=== PATIENT | female | born 1995 | race African-American/Black ===

== ENCOUNTER 2016-11-10 14:10 | Emergency (ER) | payer OTHER ==
[~2016-11-10] VITALS: Ht 162.6 cm; Wt 63.5 kg
[~2016-11-10 14:10] MED LIST: ACET50TA PO; IBUP60TA PO; IBUP80TA PO; TYLENOL PO; VITAPRTA PO
[2016-11-10] MEDS ORDERED: NS 1,000 ML IV ONE (14:45)
[2016-11-10 15:19] LABS: BASO % 0.3 % (0.0-1.0); EOS # 0.2 K/mm3 (0.0-0.50); EOS % 3.7 % (0.0-3.0); LARGE UNSTAINED CELL # 0.1 K/mm3 (0.0-0.4); LARGE UNSTAINED CELL % 1.9 % (0.0-4.0); LYMPH % 22.4 % (24.0-44.0); MEAN CORPUSCULAR HEMOGLOBIN 30.6 pg (27.0-33.0); MEAN CORPUSCULAR HGB CONC 34.9 g/dl (32.0-36.5); MEAN CORPUSCULAR VOLUME 87.7 fl (80.0-96.0); MONO # 0.2 K/mm3 (0.0-0.8); MONO % 4.8 % (0.0-5.0); NEUTROPHILS # 3.1 K/mm3 (1.8-7.7); NEUTROPHILS % 66.9 % (36.0-66.0); PLATELET COUNT, AUTOMATED 226 k/mm3 (150-450); RED CELL DISTRIBUTION WIDTH 12.2 % (11.5-14.5); WHITE BLOOD COUNT 4.6 K/mm3 (4.0-10.0)
[2016-11-10 15:49] LABS: ALBUMIN 2.9 GM/DL (3.2-5.2); ALBUMIN/GLOBULIN RATIO 0.85 (1.00-1.93); ALKALINE PHOSPHATASE 76 U/L (45-117); ALT/SGPT 15 U/L (12-78); ANION GAP 7 MEQ/L (8-16); AST/SGOT 12 U/L (15-37); BILIRUBIN,DIRECT 0.1 MG/DL (0.0-0.2); BILIRUBIN,TOTAL 0.4 MG/DL (0.2-1.0); BLOOD UREA NITROGEN 6 MG/DL (7-18); CALCIUM LEVEL 8.8 MG/DL (8.5-10.1); CARBON DIOXIDE LEVEL 27 MEQ/L (21-32); CHLORIDE LEVEL 104 MEQ/L (98-107); CREATININE FOR GFR 0.62 MG/DL (0.55-1.02); GLOMERULAR FILTRATION RATE > 60.0 (>60); GLUCOSE, FASTING 92 MG/DL (70-105); POTASSIUM SERUM 3.7 MEQ/L (3.5-5.1); SODIUM LEVEL 138 MEQ/L (136-145); TOTAL PROTEIN 6.3 GM/DL (6.4-8.2)
[2016-11-10] MEDS ORDERED: METOCLOPRAMIDE INJ 10MG/2ML VIAL (J2765) IV ONE (16:00)
[2016-11-10] MEDS ORDERED: MORPHINE 2 MG/ML 1ML SYRINGE IV ONE (16:00)
--- NOTE | 2016-11-10 16:17 | REP ---
FIRST TRIMESTER ULTRASOUND: Real-time sonographic evaluation of the gravid uterus performed utilizing transabdominal technique. There is a single living intrauterine gestation. Estimated gestational age 10 weeks 5 days based on a crown rump length of 38 mm. EDC 06/03/2017. heart rate 152 beats per minute. There is no subchorionic hemorrhage. Cystic structure of the right ovary probably represents a corpus luteum measuring approximately 1.8 cm in diameter. There is no torsion of the right ovary with duplex Doppler evaluation. Signed by Paulino Conti MD 11/11/2016 01:22 P
--- NOTE | 2016-11-10 16:21 | REP ---
RIGHT LOWER QUADRANT ULTRASOUND: Real-time sonographic evaluation of the right lower quadrant performed. Appendix could not be visualized. I could not exclude appendicitis. Right ovary is visualized. A small cystic structure in the right ovary probably represents a corpus luteum, approximately 1.3 cm in diameter. There is no evidence of right ovarian torsion with blood flow seen in the right ovary with duplex Doppler evaluation. IMPRESSION: Appendix could not be visualized. The right ovary is visualized with complex cystic structure 1.3 cm in diameter, probably representing a corpus luteum. No torsion of the right ovary. Signed by Paulino Conti MD 11/11/2016 01:22 P
[2016-11-10 16:51] VITALS: BP 120/64
== END 2016-11-10 17:33 | disposition home or self-care (01) ==
LOC: M ED 16:08
DX: O34.81 Maternal care for other abnormalities of pelvic organs, first trimester (principal); Z3A.11 11 weeks gestation of pregnancy; N83.201 Unspecified ovarian cyst, right side; Z79.899 Other long term (current) drug therapy
CPT/HCPCS: 76705; 76801; 80048; 80076; 81001; 83690; 85025; 87086; 93976; 96361; 96374; 96375; 99283; J2765

== ENCOUNTER 2016-12-12 12:12 | Emergency (ER) | payer OTHER ==
[~2016-12-12] VITALS: Ht 162.6 cm; Wt 62.6 kg
[2016-12-12] MEDS ORDERED: ACETAMINOPHEN TAB 650MG DOSE (2X325MG) PO ONE (14:30)
--- NOTE | 2016-12-12 14:49 | REP ---
OB ULTRASOUND: Real-time sonographic evaluation of the gravid uterus is performed. There is a single living intrauterine gestation with an estimated gestational age of 15 weeks 2 days, EDC 06/03/2017. BPD 31 mm = 15 weeks 6 days, 72nd percentile. HC 114 mm = 15 weeks 4 days, 62nd percentile AC 92 mm = 15 weeks 3 days, 54th percentile. FL 16 mm = 14 weeks 6 days, 37th percentile HC/AC ratio 1.24, within normal range. Estimated weight 116 grams, 39th percentile. Cervic closed and measures 4.1 cm in length. heart rate 131 beats per minute. SEEN/GROSSLY UNREMARKABLE Lateral ventricles yes Posterior fossa no Upper lip no Four-chamber heart yes LVOT yes RVOT yes Stomach yes Cord insertion yes Three vessel cord yes Kidneys yes Bladder yes Spine yes position: Variable. Placenta: Posterior and grade 0 with no previa or abruption. Amniotic fluid: Within normal limits. Signed by Paulino Conti MD 12/12/2016 08:10 P
[2016-12-12 14:55] LABS: DIFF SLIDE NUMBER 236; MEAN CORPUSCULAR VOLUME 90.2 fl (80.0-96.0); PLATELET COUNT, AUTOMATED 181 k/mm3 (150-450); RED CELL DISTRIBUTION WIDTH 13.3 % (11.5-14.5); WHITE BLOOD COUNT 5.9 K/mm3 (4.0-10.0)
[2016-12-12 15:36] LABS: MEAN CORPUSCULAR HGB CONC 36.5 g/dl (32.0-36.5)
[2016-12-12 15:45] LABS: EOSINOPHILS 1 % (0-5)
[2016-12-12] MEDS ORDERED: FLAG500T PO (15:52)
[2016-12-12 15:58] VITALS: BP 115/62
[2016-12-12] MEDS ORDERED: metroNIDAZOLE (FLAGYL) 500 MG TAB PO ONE (16:00)
== END 2016-12-12 16:01 | disposition home or self-care (01) ==
LOC: M ED 13:00
DX: O9A.212 Injury, poisoning and certain other consequences of external causes complicating pregnancy, second trimester (principal); N76.0 Acute vaginitis; W10.8XXA Fall (on) (from) other stairs and steps, initial encounter; Y92.89 Other specified places as the place of occurrence of the external cause; Y93.89 Activity, other specified; Y99.8 Other external cause status; O98.212 Gonorrhea complicating pregnancy, second trimester; O99.612 Diseases of the digestive system complicating pregnancy, second trimester; K21.9 Gastro-esophageal reflux disease without esophagitis; Z3A.15 15 weeks gestation of pregnancy

== ENCOUNTER 2016-12-13 16:45 | Emergency (ER) | payer OTHER ==
[~2016-12-13] VITALS: Ht 162.6 cm; Wt 63.5 kg
[~2016-12-13 16:45] MED LIST changes: +FLAG500T PO
[2016-12-13] MEDS ORDERED: cefTRIAXone SOD 250 MG VIAL (J0696) IM ONE (17:45)
[2016-12-13] MEDS ORDERED: AZITHROMYCIN 250 MG TAB PO ONE (17:45)
[2016-12-13 18:34] VITALS: BP 112/76
== END 2016-12-13 18:35 | disposition home or self-care (01) ==
LOC: M ED 17:47
DX: A54.02 Gonococcal vulvovaginitis, unspecified (principal); Z79.2 Long term (current) use of antibiotics
CPT/HCPCS: 99282; J0696

== ENCOUNTER 2017-03-20 20:04 | Outpatient (CLI) | payer OTHER ==
[~2017-03-20] VITALS: Ht 162.6 cm; Wt 64.0 kg
[2017-03-20 20:14] VITALS: BP 120/71
[2017-03-20 22:46] VITALS: BP 127/60
== END 2017-03-20 22:45 | disposition home or self-care (01) ==
LOC: M LDO 20:04
PROVIDERS: ATTEND Student in an Organized Health Care Education/Training Program
DX: O99.89 Other specified diseases and conditions complicating pregnancy, childbirth and the puerperium (principal); Z3A.29 29 weeks gestation of pregnancy; N39.0 Urinary tract infection, site not specified; R10.30 Lower abdominal pain, unspecified; N89.9 Noninflammatory disorder of vagina, unspecified

== ENCOUNTER 2017-04-27 14:39 | Outpatient (CLI) | payer OTHER ==
[~2017-04-27] VITALS: Ht 162.6 cm; Wt 65.0 kg
[2017-04-27 14:57] VITALS: BP 106/55
--- NOTE | 2017-04-28 11:11 | HPE ---
DATE OF ADMISSION: 04/27/2017 This lady is 21-year-old 4, para 2, last menstrual period (LMP) 08/31/2016, estimated date of confinement (EDC) 06/04/2017 at 34 and 2 weeks of gestation with a history of uterine irritability. Her risk factors is she has short interval gestations delivered in 2014 and 2015. She complains of chronic back pain and had a recent history of gonorrhea positive, test of cure negative. PAST HISTORY: In 2015, at 39 weeks, spontaneous vaginal delivery, female, 7 pounds 10 ounces. In 2016, at 38 weeks, spontaneous vaginal delivery, male 6 pounds. LABORATORY: Labs show O+, HIV negative, hepatitis negative, rubella immune. Varicella immune. Pap normal. Urine negative. Gonorrhea was positive, test of cure was negative. Chlamydia was negative. 1-hour glucose 77. On examination, she is in no distress. Symphysis fundus height is 35, vertex occiput anterior (OA), posterior, closed, high. No vaginal bleeding or vaginal loss. fibronectin (FFN) was performed and was found to be negative. Her urine is 1.005, pH is 8, 2+ leukocytes. Her blood pressure is 106/55, respirations are 18, pulse is 106 and temperature is 97.8. She has a category one strip. The rest of the examination is unremarkable. She is normocephalic, atraumatic. Neck: Full range of motion. Pupils equal and reactive to light. Distal pulses are symmetric. No evidence of deep vein thrombosis (DVT), pulmonary embolism (PE) or superficial phlebitis. Chest is clear bilaterally to bases. No wheezes or rhonchi. No costovertebral angle tenderness. Nontender uterus. Four quadrant bowel sounds are noted. Appropriate category one strip. The rest of the examination is unremarkable. She has no rashes, lesions or pruritus. No arthralgia or myalgia. No complaints of cough, wheeze, shortness of breath or dyspnea on exertion. No chest pain. Not bleeding. Neurologic complete. No incontinence, urgency or frequency. No nausea, vomiting, diarrhea or constipation. No diabetic issues. ACCESS NURSE issues: She had gonorrhea with test of cure negative. Past medical and surgical history unremarkable. Family history noncontributory. No tobacco or alcohol. Had no drug abuse. . There is no domestic violence. In summary, we have a 34 weeker with uterine irritability, negative FFN, counseled regarding precautions. Has an appointment on 05/01/2017, and she was discharged undelivered. Copy To: [facility]
== END 2017-04-27 16:15 | disposition home or self-care (01) ==
LOC: M LDO 14:39
PROVIDERS: ATTEND Obstetrics & Gynecology
DX: O62.0 Primary inadequate contractions (principal); Z3A.34 34 weeks gestation of pregnancy

== ENCOUNTER 2017-05-10 10:58 | Outpatient (CLI) | payer OTHER ==
[~2017-05-10] VITALS: Ht 162.6 cm; Wt 68.8 kg
--- NOTE | 2017-05-10 12:50 | HPE ---
DATE OF ADMISSION: 05/10/2017 HISTORY: This lady is a 21-year-old, 4, para 2, last menstrual period (LMP) 08/31/2016, estimated date of confinement (EDC) 06/04/2017, at 36 and 4 weeks of gestation with pelvic pressure. Her past history, March 2015 spontaneous delivery female at 39 weeks 7 pounds 1 ounce, January 2016 spontaneous vaginal delivery at 38 weeks male 6 pounds 0 ounces. Labs show O+, HIV negative, hepatitis negative, RPR negative, rubella immune. Varicella immune. Pap normal. Urine negative. Gonorrhea was positive. Test of cure was negative. Chlamydia was negative. Glucose was 177 and she is sickle negative. On examination, no acute distress. Symphysis fundus height is 36, vertex OA. Cervix is closed, high posterior, not dilated. No vaginal loss or bleeding. Four quadrant bowel sounds are noted. Urine is 1.001, pH 7, negative. Blood pressure 131/67, respirations 18, pulse 113 and temperature is 98.4. In summary, we have a 36 and 4 week gestation with pelvic pressure secondary to positional effect. She has had this on going since early . The rest examination unremarkable. Normocephalic, atraumatic. Neck full range of motions. Pupils equal and reactive to light. Distal pulses are symmetric. No evidence of deep venous thrombosis (DVT), pulmonary embolism (PE) or superficial phlebitis. Chest is clear bilaterally to bases. No wheezes or rhonchi. No costovertebral angle (CVA) tenderness. Abdomen soft. Four quadrant bowel sounds are noted and uterus itself is not tender. Category 1 strip. No rashes, lesions or pruritus. No arthralgia or myalgia. No complaints of cough, wheezes, shortness of breath or dyspnea on exertion. No allergies. No chest pain. No bleeding. Neuro complete. No incontinency or frequency. No nausea, vomiting, diarrhea or constipation. No diabetic issues. COLLECTION ADVISOR issues: Positive for GC, negative test of cure. Past medical and surgical history unremarkable. Family history noncontributory. She does not smoke or drink, abuse drugs. She is and there is no domestic violence. We discussed with her precautions regarding pelvic pressure, when to call the provider, kick chart, premature rupture of membranes, bleeding. The patient expressed understanding of same. Was discharged undelivered. Has an appointment followup 05/22/2017. She had already had her GBS done, although it is not presently in the chart.
== END 2017-05-10 12:28 | disposition home or self-care (01) ==
LOC: M LDO 10:58
PROVIDERS: ATTEND Obstetrics & Gynecology
DX: O26.893 Other specified pregnancy related conditions, third trimester (principal); Z3A.36 36 weeks gestation of pregnancy; R10.2 Pelvic and perineal pain

== ENCOUNTER 2017-05-31 08:39 | Inpatient (IN) | payer OTHER ==
[~2017-05-31] VITALS: Ht 162.6 cm; Wt 69.5 kg
[2017-05-31] MEDS ORDERED: RHOGAM 300 MCG (1500 IU) INJ (J2790) IM SCH (09:00)
[2017-05-31] MEDS ORDERED: MEASLES,MUMPS,RUBELLA VACCINE INJ (MMR-II) (90707) SC SCH (09:00)
[2017-05-31 09:14] VITALS: BP 102/57
[2017-05-31] MEDS ORDERED: PENICILLIN G POTASSIUM IV 5 MU in D5W MINI-BAG PLUS 100 ML IV STA ×2 (09:49→10:33)
[2017-05-31] MEDS ORDERED: LR 1,000 ML IV SCH ×2 (09:49→16:15)
[2017-05-31 10:34] LABS: MEAN CORPUSCULAR HEMOGLOBIN 29.9 pg (27.0-33.0); MEAN CORPUSCULAR HGB CONC 34.1 g/dl (32.0-36.5); MEAN CORPUSCULAR VOLUME 87.8 fl (80.0-96.0); RED CELL DISTRIBUTION WIDTH 13.8 % (11.5-14.5); WHITE BLOOD COUNT 7.2 10^3/uL (4.0-10.0)
[2017-05-31 11:18] VITALS: BP 124/76
[2017-05-31] MEDS ORDERED: OXYTOCIN 30 UNITS IN 0.9% NaCl 500ML IV BAG (J2590) As Ordered ONE (13:58)
[2017-05-31] MEDS ORDERED: PENICILLIN G POTASSIUM IV 2.5 MU in D5W 100 ML IV SCH ×2 (14:00→15:00)
[2017-05-31 14:13] VITALS: BP 119/61
[2017-05-31 14:27] VITALS: BP 127/67
[2017-05-31] MEDS ORDERED: LIDOCAINE 2% INJ 100 MG/5 ML SDV (FOR ANES.) As Ordered ONE (14:33)
[2017-05-31] MEDS ORDERED: NEOSTIGMINE 10 MG/10 ML VIAL (J2710) As Ordered ONE (14:33)
[2017-05-31] MEDS ORDERED: ONDANSETRON 4MG/2ML VIAL (J2405) As Ordered ONE (14:33)
[2017-05-31] MEDS ORDERED: ROCURONIUM BROMIDE 50 MG/5 ML VIAL/SYRINGE As Ordered ONE (14:33)
[2017-05-31] MEDS ORDERED: dexameTHASONE 4 MG/ML 1ML VIAL (J1100) As Ordered ONE (14:33)
[2017-05-31] MEDS ORDERED: PROPOFOL 200 MG/20 ML VIAL As Ordered ONE (14:33)
[2017-05-31] MEDS ORDERED: GLYCOPYRROLATE INJ 0.2 MG/ML 2 ML VIAL As Ordered ONE (14:33)
[2017-05-31] MEDS ORDERED: fentaNYL 100 MCG/2 ML INJECTION (J3010) As Ordered ONE (14:34)
[2017-05-31] MEDS ORDERED: MIDAZOLAM INJ 2 MG/2 ML VIAL (J2250) As Ordered ONE (14:34)
[2017-05-31] MEDS ORDERED: ePHEDrine SULFATE 25 MG/5 ML(5MG/ML) SYRINGE As Ordered ONE (15:20)
[2017-05-31] MEDS ORDERED: OXYTOCIN INJ 10 UNITS/ML VIAL (J2590) As Ordered ONE (15:20)
[2017-05-31] MEDS ORDERED: fentaNYL 100 MCG/2 ML INJECTION (J3010) IV PRN (16:15)
[2017-05-31] MEDS ORDERED: ONDANSETRON 4MG/2ML VIAL (J2405) IV PRN ×2 (16:15→17:45)
[2017-05-31] MEDS ORDERED: PERCOCET 5MG/325MG TAB PO PRN (16:15)
[2017-05-31] MEDS ORDERED: MEPERIDINE INJ 25 MG/ML VIAL (J2175) IV PRN (16:15)
[2017-05-31] MEDS ORDERED: METOCLOPRAMIDE INJ 10MG/2ML VIAL (J2765) IV PRN (16:15)
[2017-05-31] MEDS ORDERED: OXYTOCIN DRIP 30 UNITS in APPROPRIATE DILUENT 1 EA IV SCH (17:39)
[2017-05-31] MEDS ORDERED: PROMETHAZINE 25 MG TAB PO PRN (17:45)
[2017-05-31] MEDS ORDERED: DIBUCAINE 1% OINTMENT 30GM TOP PRN (17:45)
[2017-05-31] MEDS ORDERED: ACETAMINOPHEN 500 MG TAB PO PRN (17:45)
[2017-05-31] MEDS ORDERED: METHYLERGONOVINE MALEATE 0.2 MG TAB PO PRN (17:45)
[2017-05-31] MEDS: PRENATAL VITAMINS CHEWABLE TABLET PO SCH (17:54)
[2017-05-31 18:00] VITALS: BP 125/77
[2017-05-31] MEDS: DOCUSATE SODIUM 100 MG CAP PO SCH (21:00)
[2017-06-01 06:00] VITALS: BP 103/56
[2017-06-01] MEDS: IBUPROFEN 800 MG TAB PO PRN (06:36)
[2017-06-01 07:51] LABS: MEAN CORPUSCULAR HEMOGLOBIN 29.8 pg (27.0-33.0); MEAN CORPUSCULAR HGB CONC 33.6 g/dl (32.0-36.5); MEAN CORPUSCULAR VOLUME 88.7 fl (80.0-96.0)
[2017-06-01] MEDS: PRENATAL VITAMINS CHEWABLE TABLET PO SCH (09:02)
[2017-06-01] MEDS: DOCUSATE SODIUM 100 MG CAP PO SCH ×2 (09:03→21:06)
[2017-06-01] MEDS ORDERED: INFLUENZA QUADRIVALENT PF VACCINE 0.5ML SYRINGE (90686) IM ONE (12:00)
[2017-06-01] MEDS: CEPACOL LOZENGE PO PRN ×2 (15:32→21:07)
[2017-06-01 18:06] VITALS: BP 114/63
[2017-06-02 06:00] VITALS: BP 106/59
[2017-06-02] MEDS: PRENATAL VITAMINS CHEWABLE TABLET PO SCH (08:00)
[2017-06-02] MEDS: DOCUSATE SODIUM 100 MG CAP PO SCH (08:00)
[2017-06-02] MEDS: IBUPROFEN 800 MG TAB PO PRN (08:01)
[2017-06-02] MEDS: CEPACOL LOZENGE PO PRN (08:02)
[2017-06-02] MEDS ORDERED: DIBU10OI TOP (08:21)
[2017-06-02] MEDS ORDERED: TYLE325T5 PO (08:21)
[2017-06-02] MEDS ORDERED: COLA100C5 PO (08:21)
[2017-06-02] MEDS ORDERED: MOTR200T44 PO (08:21)
--- NOTE | 2017-06-02 14:20 | DSES ---
DATE OF ADMISSION: 05/31/2017 DATE OF DISCHARGE: This lady is 21-year-old, 4 now para 3 who was admitted in spontaneous labor. She had a spontaneous vaginal delivery, unassisted, male infant 7 pounds 1 ounce, 3210 grams, scores of 9 and 10 at 1 and 5 minutes, respectively. She had a cervical laceration, which required to be repaired in the operating theater under general anesthetic. Had a 400 mL blood loss. She was GBS positive, not treated in time. The other risk factor is that she had gonorrhea, which test of cure was negative. Her admitting hemoglobin was 12.0, hematocrit 35.2 and platelets were 175. 4 hours post repair, her hemoglobin was 9.0, hematocrit 26.8 and platelets were 170. Her vital signs today showed her blood pressure is 106/59, respirations 16, pulse 80, temperature 98.3. She is presently bottle-feeding and has no hemodynamic issues. She is walking around, voiding, passing gas. She is normocephalic, atraumatic. Neck: Full range of motion. Pupils equal and reactive to light. Distal pulses symmetric. No evidence of DVT, PE or superficial phlebitis. No wheezes or rhonchi. Chest is clear bilaterally to the bases. No costovertebral angle tenderness. Uterus two below. Lochia is moderate. Perineum is intact. She has no rashes, lesions or pruritus. No arthralgia or myalgia. No complaints of cough, wheezes, shortness of breath or dyspnea on exertion. No chest pain. She is not bleeding. Neuro complete. No incontinence, urgency or frequency. No nausea, vomiting, diarrhea or constipation. No diabetic issues. No FLAT FINISHER. Unremarkable past medical, surgical. Family history is noncontributory. She does not smoke, drink, or abuse drugs. She is and presently the is in the room. There is no domestic violence. She has good support. In summary, we have an active precipitous spontaneous delivery with cervical laceration, repaired, uncomplicated, not requiring any blood transfusion. The patient was discharged to followup in six weeks' time at the clinic for check and she was dispensed medications upon discharge.
== END 2017-06-02 15:15 | disposition home or self-care (01) | DRG 775 ==
LOC: M LDO 08:39 → M LDI 09:52 → M OBS 18:38
PROVIDERS: ADMIT Obstetrics & Gynecology; ATTEND Obstetrics & Gynecology
PROC: 0UQC7ZZ Repair Cervix, Via Natural or Artificial Opening (ICD-10-PCS; 2017-05-31)
PROC: 10E0XZZ Delivery of Products of Conception, External Approach (ICD-10-PCS; principal; 2017-05-31 14:23)
DX: O99.824 Streptococcus B carrier state complicating childbirth (principal); Z37.0 Single live birth; O71.3 Obstetric laceration of cervix; Z3A.39 39 weeks gestation of pregnancy; Z79.899 Other long term (current) drug therapy; O62.3 Precipitate labor